=== PATIENT | female | born 1995 | race Hispanic/Latino ===

== ENCOUNTER 2018-10-27 18:33 | Emergency (ER) | payer OTHER ==
[~2018-10-27] VITALS: Ht 149.9 cm; Wt 74.8 kg
[2018-10-27] MEDS ORDERED: MELOXICAM15 MG PO (18:48)
== END 2018-10-27 19:08 | disposition home or self-care (01) ==
LOC: ED 18:33
DX: Z00.00 Encounter for general adult medical examination without abnormal findings (principal); Z79.899 Other long term (current) drug therapy
CPT/HCPCS: 99282

== ENCOUNTER 2022-10-12 14:25 | Emergency (ER) | payer OTHER ==
[~2022-10-12] VITALS: Ht 149.9 cm; Wt 78.0 kg
[~2022-10-12 14:25] MED LIST: MELOXICAM15 MG PO
--- OUTSIDE RECORDS SUMMARY | 2022-10-12 14:30 | XMS ---
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 [facility] has no Care Guidelines for this patient. [place] VISIT COUNT (12 MO.) [address] TOTAL 5 NOTE: Visits indicate total known visits. ED/UCC VISIT TRACKING (12 MO.) [facility] COMPLAINT: - 7 WKS PG, VOMITING, CRAMPS, NECK PAIN 10/12/2022 13:41 [facility] [facility] [place] TYPE: Emergency COMPLAINT: - 7 wks PREG, ABDOMINAL PAIN DIAGNOSES: - 7 wks PREG, ABDOMINAL PAIN 10/11/2022 06:37 [facility] [facility] [place] TYPE: Emergency DIAGNOSES: - VOMITTING BLOOD - Vomiting of , unspecified 09/21/2022 08:09 [facility] [place] TYPE: Emergency COMPLAINT: - L HIP PAIN DIAGNOSES: - L HIP PAIN 08/05/2022 06:33 [facility] [facility] [place] TYPE: Emergency DIAGNOSES: - Other muscle spasm - Right lower quadrant pain - Abnormal uterine and vaginal bleeding, unspecified - Major depressive disorder, single episode, severe without psychotic features - Anxiety disorder, unspecified - Primary insomnia - Other seasonal allergic rhinitis - Vitamin D deficiency, unspecified - VAGINAL CRAMPING AND BLEEDING INPATIENT VISIT TRACKING (12 MO.) No inpatient visits to display in this time frame [email or web address]
[2022-10-12] MEDS ORDERED: REGLAN10 MG PO (16:53)
[2022-10-12] MEDS ORDERED: PROMETHAZINE HC25 M1 PO (16:53)
== END 2022-10-12 18:40 | disposition home or self-care (01) ==
LOC: ED 14:25
DX: O21.0 Mild hyperemesis gravidarum (principal); Z3A.01 Less than 8 weeks gestation of pregnancy
CPT/HCPCS: 36415; 80053; 81003; 84702; 85025; 96361; 96374; 96375; 96376; 99284-25; A9270; J1200; J2550; J2765; J7030